=== PATIENT | male | born 1985 | race Caucasian/White ===

== ENCOUNTER → 2022-04-16 | Outpatient (CLI) | payer OTHER ==
[2022-04-17 08:07] LABS: RUBEOLA (MEASLES) IGG >300.0 AU/mL (Immune >16.4)
== END | disposition home or self-care (01) ==
LOC: LABMN 14:29
PROVIDERS: ATTEND Internal Medicine
DX: Z02.1 Encounter for pre-employment examination (principal)
CPT/HCPCS: 86706; 86735; 86762; 86765; 86787

== ENCOUNTER 2024-10-01 20:13 | Emergency (ER) | payer OTHER ==
[~2024-10-01] VITALS: Ht 182.9 cm; Wt 90.9 kg
[2024-10-01 20:48] VITALS: BP 135/71; PULSE 48; RESP 16; TEMP 97.8; O2SAT 95
[2024-10-03 06:07] LABS: HEPATITIS A ANTIBODY IGM Negative (Negative); HEPATITIS B CORE IGM Negative (Negative); HEPATITIS C AB (EIA) Non Reactive (Non Reactive)
== END 2024-10-01 23:52 | disposition home or self-care (01) ==
LOC: EMS 20:13
DX: Z77.21 Contact with and (suspected) exposure to potentially hazardous body fluids (principal)
CPT/HCPCS: 80074; 99283